=== PATIENT | female | born 1985 ===

== ENCOUNTER → 2021-10-02 13:44 | Outpatient (CLI) | payer OTHER, SELFPAY ==
[2021-10-02 14:17] LABS: Add Manual Diff / Slide Review NO; Basophils Absolute Auto 0 /uL (0-100); Basophils Percent Auto 0.6 % (0-2); Eosinophils Absolute Auto 200 /uL (0-450); Eosinophils Percent Auto 1.9 % (2-4); Hematocrit 40.7 % (36-46); Hemoglobin 14.1 g/dL (12.0-16.0); Lymphocytes Absolute Auto 2400 /uL (1100-4500); Lymphocytes Percent Auto 27.7 % (25-40); Mean Corpuscular HGB Conc 34.6 % (30-36); Mean Corpuscular Hemoglobin 30.4 PG (26-34); Mean Corpuscular Volume 87.9 fL (80-100); Monocytes Absolute Auto 700 /uL (0-900); Neutrophils Absolute Auto 5400 /uL (1500-7000); Neutrophils Percent Auto 61.8 % (50-75); Platelet Count 241 X10^3/uL (150-400); Red Blood Cell Count 4.63 X10^6/uL (4.0-5.2); Red Cell Distribution Width 13.8 % (11.6-14.8); White Blood Cell Count 8.8 X10^3/uL (4.5-11.0)
[2021-10-02 14:26] LABS: Alanine Aminotransferase 21 IU/L (<35); Albumin 4.4 g/dL (3.5-5.0); Albumin Globulin Ratio 1.6 (1.0-2.8); Alkaline Phosphatase 84 U/L (38-126); Aspartate Aminotransferase 24 IU/L (14-36); BUN Creatinine Ratio 16.7 (6-22); Bilirubin Total 0.5 mg/dL (0.2-1.3); Blood Urea Nitrogen 10 mg/dL (7-17); Calcium 9.4 mg/dL (8.4-10.2); Carbon Dioxide 27 mmol/L (22-32); Chloride 104 mmol/L (98-107); Estimated Glomerular Filt Rate > 60.0 mL/min (>60); Globulin 2.7 g/dL (1.7-4.1); Glucose 99 mg/dL (70-100); HEMOLYSIS < 15 (0-50); Lipase 98 U/L (23-300); Sodium 139 mmol/L (137-145); Total Protein 7.1 g/dL (6.3-8.2)
== END ==
PROVIDERS: PCP Family Medicine; Referring Provider Surgery; Visit Provider Surgery
DX: K80.20 Calculus of gallbladder without cholecystitis without obstruction (principal)
CPT/HCPCS: 36415; 80053; 83690; 85025; 99213

== ENCOUNTER → 2021-10-10 10:05 | Outpatient (CLI) | payer OTHER, SELFPAY ==
[2021-10-10 13:44] LABS: COVID19 -Nasal RAPID Negative (Negative)
== END ==
PROVIDERS: PCP Family Medicine; Visit Provider Surgery
DX: Z01.812 Encounter for preprocedural laboratory examination (principal); Z20.822 Contact with and (suspected) exposure to COVID-19
CPT/HCPCS: 87635; C9803

== ENCOUNTER 2021-10-13 06:38 | Day surgery (SDC) | payer OTHER, SELFPAY ==
[2021-10-02 14:45] VITALS: BMI 36.7
[2021-10-13] VITALS (10 sets, daily range): BP systolic 112–148; BP diastolic 62–95; PULSE 95–114; RESP 12–16; TEMP 36.6–36.9; O2SAT 92–99; BMI 36.7
--- NOTE | 2021-10-13 | PATH_ITS ---
[facility] Accession Number: [id number] . 01 Material submitted: . gallbladder - GALLBLADDER . 02 Diagnosis: Gallbladder, Cholecystectomy: Gallbladder with cholelithiasis. Choleliths present within cystic duct at gross examination. MRV 10/15/2021 1043 Local . 02 Electronically signed: . Hilda Guerra MD, Pathologist NPI- [id number] . 01 Gross description: . The specimen is received in formalin, labeled gallbladder and consists of a 10.0 x 4.0 x 3.5 cm intact gallbladder with a 0.3 cm in diameter cystic duct. The serosa is barboza-pink, focally hemorrhagic with fibrinous adhesions. Opening reveals green viscous bile and multiple barboza bosselated choleliths ranging from 0.2-1.2 cm, one cholelith is firmly lodged within the cystic duct. The mucosa is barboza-pink and smooth and the wall thickness measures 0.5 cm. Construction Area Manager section are submitted, to include the en face cystic duct margin (blue), in cassette A1. ([id number]) /MRV 10/14/2021 1046 Local . 02 Pathologist provided ICD-10: K80.20 . 02 CPT . 446795 Performed at: 01 [facility] [address], [place], [place] [id number] MD Jarad Vargas MD Phone: [phone] Performed at: 02 [facility] [address] [place], [place] [id number] MD Kim Infante MD Phone: [phone]
--- NOTE | 2021-10-13 07:21 | PM.PREOP ---
Pre-operative Note COVID-19 COVID-19 status: Negative Result date/Date tested (Pos, Neg/Pending): 10/10/21 Interval Note History & Physical reviewed/Exam performed by Physician: Yes Changes to H&P: No ASA Class (for procedural sedation): II
[2021-10-13] MEDS: LACTATED RINGERS 1,000 ML 42 ML IV (07:25)
[2021-10-13] MEDS: CEFAZOLIN 2 GM/20 ML SYRINGE IV (07:46)
--- NOTE | 2021-10-13 08:25 | SUR.OPER ---
Supine on padded OR bed, head on pillow, safety belt at thigh, both arms padded and tucked at sides. Legs uncrossed. Padded footboard in place. Tape over blanket to secure lower legs.
[2021-10-13] MEDS: LIDOCAINE 1% W/EPI 20 ML INJ (08:40)
[2021-10-13] MEDS: BUPIVACAINE 0.5% (PF) VIAL 30 ML INJ (08:41)
--- NOTE | 2021-10-13 10:15 | P.OP_ITS ---
Operative Date/Time/Diagnoses Date of procedure: 10/13/21 Time of procedure: 10:15 Pre-op diagnosis: Cholelithiasis Post-op diagnosis: same Procedure & Clinicians Procedure: Laparoscopic cholecystectomy Same procedure as scheduled: Yes Indications: Cholelithiasis Surgeon: Enrique Delgado Click Yes if Unassisted: Yes Anesthesia Type: General Operative Notes Findings: The patient was given preoperative antibiotic. The patient was brought to the operating room, placed on the table in the supine position. General endotracheal anesthesia was induced. The abdomen was prepped and draped. A time-out was performed. We made a 1 cm infraumbilical incision. We dissected down to the base of the umbilical stalk using cautery. We grasped the umbilical stalk with a Tesha clamp to elevate the abdominal wall. We scored the fascia in the midline with cautery 1 cm. We pierced the peritoneum with a Peon clamp. The Viri port was placed and the abdomen was insufflated to 15 mmHg. A 12 mm 30 degree laparoscopic was inserted. There was no evidence of any injury from the entry. Next, we placed 5 mm ports in the subxiphoid position and right upper quadrant at the midclavicular line and anterior axillary line. Patient was then positioned in reverse Trendelenburg and the table was tilted to the left. The gallbladder was noticeably the enlarged distended and tense. We drained the gallbladder with the needle and removed about 30 mL of bile. We were then able to grasp the gallbladder at the dome and retract it cephalad. We took down several filmy adhesions of omentum to the gallbladder with hook cautery. There were some adhesions of mesenteric tissue to the right liver which were carefully dissected with cautery to allow full retraction of the gallbladder. We then dissected the cystic structures with a combination of hook cautery and blunt dissection. There was significant fibrosis around the gallbladder. A eventually we were able to obtain a critical view. We placed he moclips on the cystic duct and artery and divided the cystic duct and artery sharply between the clips. The gallbladder was then dissected off the liver and placed in a specimen retrieval bag. We irrigated the right upper quadrant and all the aspirate returned clear. We then removed the 5 mm ports under direct vision we removed the Viri port. We did extend the fascial incision to about 2 cm to extract the gallbladder. We injected some local into the fascia and closed the fascia with 4 interrupted 0 Vicryl sutures. The skin incisions were closed with 4 Monocryl and Steri-Strips were applied. Band-Aids were applied over the Steri-Strips. EBL: 40 mL Specimen: Gallbladder Post-operative Condition: stable Disposition: PACU
--- NOTE | 2021-10-13 10:50 | SUR.PHASEI ---
1011 hrs: Pt recieved from OR breathing unassisted. Report from BATTERY PLATE REMOVER and Dr Martinez. All questions answered.
[2021-10-13] MEDS: OXYCODONE/ACETAMINOPHEN 5/325 TABLET 1 TAB PO ×2 (10:54→11:23)
== END 2021-10-13 11:58 | disposition home or self-care (01) ==
PROVIDERS: PCP Family Medicine; Referring Provider Surgery; Visit Provider Surgery
PROC: 0FT44ZZ Resection of Gallbladder, Percutaneous Endoscopic Approach (ICD-10-PCS; CPT 47562; principal; 2021-10-13 07:45)
DX: K80.20 Calculus of gallbladder without cholecystitis without obstruction (principal)
CPT/HCPCS: 47562; J0690; J1100; J1885; J2250; J2405; J2704; J3010